=== PATIENT | female | born 1970 | race Caucasian/White ===

== ENCOUNTER 2018-07-31 16:35 | Inpatient (IN) | payer OTHER ==
[~2018-07-31] VITALS: Ht 165.1 cm; Wt 101.6 kg
[~2018-07-31 16:35] MED LIST: ACET325 PO; ALPR1 PO; AMOCLA875 PO; BUPR1 PO; CEFD300 PO; CEPH500 PO; CIPR500 PO; CLIN300 PO; CLON.2 PO; CODGUAEL PO; CONEST1.25 PO; DICY20 PO; DOXY100 PO; ESTR2 PO; FLUC200 PO; FLUT.05NI; GABA300 PO; GABA600 PO; GUAN1 PO; HYDACE10B; HYDACE5 PO; HYDACE7.5 PO; HYDGUAL120 PO; HYDPAM50 PO; IBUP200 PO; IBUP800 PO; KETO10 PO; LAMO100; LEVSOD50 PO; LOPE2C PO; LORA1 PO; METH10 PO; NAPR550 PO; ONDA4ODT MM; OXYACE5T PO; OXYC5; OXYC5 PO; PARO20 PO; PENVK500 PO; PHENA200 PO; PRED20 PO; PROCODE120 PO; PROM25 PO; RXHYDACE PO; RXNAPNA550 PO; RXOXYACE PO; SILSUL1TC TOP; SULTRIDS PO; TOPI100; TRAM50 PO; TRAZ100 PO; VARE1 PO; [UNRECOGNIZED DRUG - REMARK] PO
[2018-07-31 17:31] LABS: Source, Urine Voided
[2018-07-31 17:33] LABS: BASOPHILS ABSOLUTE AUTO 0.01 K/mm3 (0.00-0.23); BASOPHILS PERCENT AUTO 0 % (0-2); EOSINOPHILS ABSOLUTE AUTO 0.06 K/mm3 (0.00-0.68); EOSINOPHILS PERCENT AUTO 1 % (0-6); Hematocrit 32.5 % (33.0-51.0); Hemoglobin 11.3 g/dL (11.5-16.0); IMMATURE GRAN ABSOLUTE AUTO 0.07 K/mm3 (0.00-0.10); IMMATURE GRAN PERCENT AUTO 1 % (0-1); LYMPHOCYTES PERCENT AUTO 5 % (21-46); MONOCYTES ABSOLUTE AUTO 0.43 K/mm3 (0.16-1.47); MONOCYTES PERCENT AUTO 4 % (4-13); Mean Corpuscular HGB 30.4 pg (26.0-34.0); Mean Corpuscular HGB Conc 34.8 g/dL (31.5-36.5); Mean Corpuscular Volume 87 fL (80-100); Mean Platelet Volume 11.3 fL (9.1-12.4); NEUTROPHILS ABSOLUTE AUTO 9.19 K/mm3 (1.96-9.15); NEUTROPHILS PERCENT AUTO 90 % (41-73); Platelet Count 143 K/mm3 (150-400); RDW Coefficient Variation 12.5 % (11.7-14.2); Red Blood Cell Count 3.72 M/mm3 (3.80-5.20); White Blood Cell Count 10.26 K/mm3 (4.00-11.30)
[2018-07-31 17:37] LABS: Appearance, Urine Clear (Clear); Bilirubin, Urine Neg (Neg); Blood, Urine 2+ (Neg); Color, Urine Yellow (P-Yellow); Glucose Qualitative, Urine Neg (Neg); Ketones, Urine Neg (Neg); Leukocyte Esterase, Urine Neg (Neg); Nitrite, Urine Neg (Neg); Protein, Urine 2+ (Neg); Urobilinogen, Urine NORM (Normal)
[2018-07-31 17:47] LABS: Amorphous Light (0-Heavy); Bacteria Few /hpf; Granular Casts 0-2 /lpf (0); Squamous Epithelial Cells Few /hpf (Few)
[2018-07-31] MEDS ORDERED: Bactrim Ds Tab1 EACH PO ×2 (17:54)
[2018-07-31] MEDS ORDERED: BACI500TO TOP ×2 (17:55)
[2018-07-31 17:56] LABS: Alanine Aminotransfer (ALT/SGP 20 U/L (12-78); Albumin, Blood 2.5 g/dL (3.4-5.0); Albumin/Globulin Ratio 0.6 (0.8-1.8); Alk Phos 79 U/L (50-136); Anion Gap 6 mmol/L (6-16); Aspartate Aminotrans (AST/SGOT 22 U/L (12-37); Bilirubin, Total 0.5 mg/dL (0.1-1.0); Blood Urea Nitrogen 7 mg/dL (8-24); Bun/Creatinine Ratio 10.8 (12.0-20.0); CO2, Blood 28 mmol/L (21-32); Calcium, Blood 8.7 mg/dL (8.5-10.1); Chloride, Blood 96 mmol/L (98-108); Creatinine, Blood 0.65 mg/dL (0.40-1.00); Globulin, Blood 3.9 g/dL (2.2-4.0); Glomerular Filtration Rate >60 (60-); Glucose, Blood 100 mg/dL (70-99); Potassium, Blood 2.9 mmol/L (3.5-5.5); Sodium, Blood 130 mmol/L (136-145); Total Protein, Blood 6.4 g/dL (6.4-8.2)
[2018-07-31] MEDS ORDERED: LIDO5TO TOP ×2 (17:56)
[2018-07-31] MEDS ORDERED: DOXY100T53 PO ×2 (17:56)
[2018-07-31 17:57] LABS: Beta HCG, Quantitative, Serum 1 mIU/mL (0-3)
[2018-07-31] MEDS ORDERED: ZUBSOLV 8.6-2.1 EACH SL ×2 (17:57)
[2018-07-31] MEDS ORDERED: ZUBSOLV 1.4-0.1 EACH SL ×2 (17:57)
[2018-07-31] MEDS ORDERED: ESTR2 PO ×2 (17:58)
[2018-07-31] MEDS ORDERED: MELA3 PO ×2 (17:58)
[2018-08-01 05:02] LABS: BASOPHILS ABSOLUTE AUTO 0.01 K/mm3 (0.00-0.23); BASOPHILS PERCENT AUTO 0 % (0-2); EOSINOPHILS ABSOLUTE AUTO 0.04 K/mm3 (0.00-0.68); EOSINOPHILS PERCENT AUTO 1 % (0-6); Hematocrit 29.6 % (33.0-51.0); Hemoglobin 10.3 g/dL (11.5-16.0); IMMATURE GRAN ABSOLUTE AUTO 0.05 K/mm3 (0.00-0.10); IMMATURE GRAN PERCENT AUTO 1 % (0-1); LYMPHOCYTES PERCENT AUTO 10 % (21-46); MONOCYTES ABSOLUTE AUTO 0.54 K/mm3 (0.16-1.47); MONOCYTES PERCENT AUTO 7 % (4-13); Mean Corpuscular HGB 29.9 pg (26.0-34.0); Mean Corpuscular HGB Conc 34.8 g/dL (31.5-36.5); Mean Corpuscular Volume 86 fL (80-100); NEUTROPHILS ABSOLUTE AUTO 6.01 K/mm3 (1.96-9.15); NEUTROPHILS PERCENT AUTO 82 % (41-73); RDW Coefficient Variation 12.8 % (11.7-14.2); RDW Standard Deviation 40.2 fL (35.1-46.3); Red Blood Cell Count 3.44 M/mm3 (3.80-5.20); White Blood Cell Count 7.35 K/mm3 (4.00-11.30)
[2018-08-01 05:05] LABS: Mean Platelet Volume 12.1 fL (9.1-12.4); Platelet Count 111 K/mm3 (150-400)
--- NOTE | 2018-08-01 05:17 | NUR ---
SHIFT SUMMARY PT WAS IN PAIN UPON ARRIVAL TO FLOOR. PT HAS BEEN MEDICATED PER EMAR. PT ALSO RECIEVED A OT DOSE OF TRAMADOL ORDERED BY DR KEENE. IT WORKED OK FOR PT. PT MAY BENEFIT FROM CONTINUED USE OF TRAMADOL FOR DISCOMFORT. COLD THERAPY STATRTED ON R LEG WITH GOOD EFFECT. PT WAS ABLE TO SLEEP EVENTUALLY. PT CURRENTLY SLEEPING AND BREATHING EASY. CALL LIGHT IN REACH.
[2018-08-01 05:22] LABS: Anion Gap 7 mmol/L (6-16); Blood Urea Nitrogen 6 mg/dL (8-24); Bun/Creatinine Ratio 9.5 (12.0-20.0); CO2, Blood 27 mmol/L (21-32); Calcium, Blood 7.8 mg/dL (8.5-10.1); Chloride, Blood 102 mmol/L (98-108); Creatinine, Blood 0.63 mg/dL (0.40-1.00); Glomerular Filtration Rate >60 (60-); Glucose, Blood 103 mg/dL (70-99); Potassium, Blood 3.2 mmol/L (3.5-5.5); Sodium, Blood 136 mmol/L (136-145)
--- NOTE | 2018-08-01 17:13 | NUR ---
SHIFT SUMMARY PT AXO, COOPERATIVE WITH CARE. TEMPERATURE RANGING FROM 101.9 TO 98.9. TYLENOL GIVEN PER EMAR. PT COMPLAINING OF PAIN 7-10 THOUGHOUT THE DAY. PT RESTING COMFORTABLY THOUGH RATING PAIN AT A 7 AT THIS TIME. PT UP WITH SBA TO BATHROOM. AMBULATION ENCOURAGED THROUGHOUT THE DAY. PT COMPLAINED OF SWELLING IN HANDS BILATERALLY. DR TOLEDO NOTIFED WHO ORDERED NURSE TO ENCOURAGE AMBULATION AND REDUCED THE RATE OF INFUSION. IV'S PATENT. BOARDER OF REDDENED AREA MARKED THIS MORNING. COLOR OF RLE IS STILL RED BUT NOT BRIGHT IT WAS AT START OF SHIFT. NO OTHER CHANGES THIS SHIFT. BED IN LOW POSITION, CALL LIGHT WITHIN REACH.
[2018-08-02 05:38] LABS: Albumin, Blood 1.9 g/dL (3.4-5.0); Anion Gap 5 mmol/L (6-16); Blood Urea Nitrogen 5 mg/dL (8-24); Bun/Creatinine Ratio 7.3 (12.0-20.0); CO2, Blood 29 mmol/L (21-32); Chloride, Blood 102 mmol/L (98-108); Creatinine, Blood 0.69 mg/dL (0.40-1.00); Glomerular Filtration Rate >60 (60-); Glucose, Blood 90 mg/dL (70-99); Phosphorus, Blood 2.9 mg/dL (2.5-4.9); Potassium, Blood 3.4 mmol/L (3.5-5.5); Sodium, Blood 136 mmol/L (136-145)
[2018-08-02 10:53] LABS: Vancomycin, Trough 13.3 ug/mL (5.0-10.0)
--- NOTE | 2018-08-02 18:05 | NUR ---
SHIFT SUMMARY PT AXO, PLEASANT AND COOPERATIVE WITH CARE THOUGH ANXIOUS AT TIMES. TEMPERATURE 99.5-99.8 THIS SHIFT MEDICATED PER EMAR. PT MEDICATED FOR CONSTIPAITON WELL. AMBULATION ENCOURAGED, PT MOTIVATED TO AMBULATE WELL, WALKING AROUND THE UNIT X3 THIS SHIFT. POWERGLIDE INSERTED THIS SHIFT BY MYA KUMAR RN. RED AREA ON LEG MARKED YESTERDAY. POSTERIOR ASPECT OF LEG AREA MARKED ABOVE KNEE JOINT THIS SHIFT. PT MEDICATED FOR PAIN PER EMAR. PT DENIES SOB AND NV. PT IN SHOWER AT THIS TIME. BED IN LOW POSITION, CALL LIGHT WITHIN REACH.
[2018-08-03 05:57] LABS: BASOPHILS ABSOLUTE AUTO 0.03 K/mm3 (0.00-0.23); BASOPHILS PERCENT AUTO 0 % (0-2); EOSINOPHILS ABSOLUTE AUTO 0.14 K/mm3 (0.00-0.68); EOSINOPHILS PERCENT AUTO 2 % (0-6); Hematocrit 29.7 % (33.0-51.0); IMMATURE GRAN ABSOLUTE AUTO 0.06 K/mm3 (0.00-0.10); IMMATURE GRAN PERCENT AUTO 1 % (0-1); LYMPHOCYTES ABSOLUTE AUTO 1.52 K/mm3 (0.84-5.20); LYMPHOCYTES PERCENT AUTO 22 % (21-46); MONOCYTES ABSOLUTE AUTO 0.92 K/mm3 (0.16-1.47); MONOCYTES PERCENT AUTO 13 % (4-13); Mean Corpuscular HGB 30.1 pg (26.0-34.0); Mean Corpuscular HGB Conc 33.7 g/dL (31.5-36.5); Mean Platelet Volume 11.6 fL (9.1-12.4); NEUTROPHILS ABSOLUTE AUTO 4.25 K/mm3 (1.96-9.15); NEUTROPHILS PERCENT AUTO 61 % (41-73); Platelet Count 195 K/mm3 (150-400); RDW Coefficient Variation 13.5 % (11.7-14.2); RDW Standard Deviation 44.4 fL (35.1-46.3); Red Blood Cell Count 3.32 M/mm3 (3.80-5.20); White Blood Cell Count 6.92 K/mm3 (4.00-11.30)
[2018-08-03 06:00] LABS: Mean Corpuscular Volume 90 fL (80-100)
--- NOTE | 2018-08-03 06:22 | NUR ---
SHIFT SUMMARY A/O, ABLE TO MAKE NEEDS KNOWN. COOPERATIVE WITH CARE. CALLS AND ANSWERS QUESTIONS APPROPRIATLEY. UP INDEPENDENTLY IN ROOM AND HALLWAYS. C/O PAIN/DISCOMFORT TO RLE PERIODICALLY; MEDICATED PER EMAR. AFFECTED EXTREMITY ELEVATED ON PILLOWS; SWELLING/ERYTHEMA APPEARS TO HAVE REDUCED. PG TO KASSI PULLED OUT AND DRESSING REPLACED BY DEVAN, PUBLIC SAFETY DIRECTOR. PG NOW FLUSHING APPROPRIATELY WITHOUT COMPLICATIONS; ALSO DRAWS BACK FOR LABS. APPEARED TO REST OFF AND ON THROUGHOUT SHIFT. FEBRILE THIS AM; WILL RE-CHECK. NO OTHER ACUTE CHANGES. BED IN LOWEST POSITION. CALL LIGHT AND BELONGINGS WITHIN REACH. WCTM. REPORT TO ONCOMING RN.
[2018-08-03 06:27] LABS: Albumin, Blood 2.1 g/dL (3.4-5.0); Anion Gap 4 mmol/L (6-16); Blood Urea Nitrogen 11 mg/dL (8-24); Bun/Creatinine Ratio 14.4 (12.0-20.0); CO2, Blood 32 mmol/L (21-32); Calcium, Blood 8.5 mg/dL (8.5-10.1); Chloride, Blood 106 mmol/L (98-108); Creatinine, Blood 0.76 mg/dL (0.40-1.00); Glomerular Filtration Rate >60 (60-); Glucose, Blood 94 mg/dL (70-99); Phosphorus, Blood 3.8 mg/dL (2.5-4.9); Sodium, Blood 142 mmol/L (136-145)
--- NOTE | 2018-08-03 18:37 | NUR ---
SHIFT SUMMARY MODESTA COMPLAINED OF PAIN IN HER RLE, RELIEVED BY IV BENADRYL, IV TORADOL, AND TYLENOL. R LEG RED AND SWOLLEN, THOUGH REDNESS IS SHRINKING PER BLACK LINE FROM PRIOR MARKING. L POWERGLIDE C/D/I. HAD BM. INDEPENDENT IN ROOM TO BR. CALL LIGHT IN REACH. WCTM
--- NOTE | 2018-08-04 07:21 | NUR ---
SHIFT SUMMARY PT IS A 47 Y/O FEMALE, ADMITTED FOR RLE CELLULITIS. SHE IS A&O X 4, AND INDEPENDENT IN THE ROOM. PT REPORTED A HEADACHE AND PAIN IN HER RLE, AND WAS MEDICATED WITH TORADOL AND TYLENOL. NO COMPLAINTS OF NAUSEA OR SOB. VITALS REMAINED STABLE. NO OTHER ACUTE CHANGES IN PT CONDITION NOTED. WILL CONTINUE TO MONITOR AND TREAT PER EMAR.
[2018-08-04 11:08] LABS: Vancomycin, Trough 16.4 ug/mL (5.0-10.0)
--- NOTE | 2018-08-04 16:46 | NUR ---
SHIFT SUMMARY NO CHANGES IN ASSESSMENT AT THIS TIME. VSS. PT ANXOUS ABOUT DC PLAN. DC PLANNING INFORMED THAT PT WOULD PREFER HOME INFUSIONS IF NEEDED/POSSIBLE UPON DC. PT A&O AND IND IN ROOM. PT C/O HEADACHE THIS SHIFT. DR. VILLANUEVA INFORMED & ORDERED FLEXERIL. PT STATES SHE THINKS IT IS HELPING RELIEVE HER NECK TENSION & HELPING WITH HEADACHE. WILL CONTINUE TO MONITOR UNTIL TURNOVER IS COMPLETE.
--- NOTE | 2018-08-05 07:29 | NUR ---
SHIFT SUMMARY PT A/O. C/O PAIN IN NECK/BACK AND MEDICATED PER EMAR X2. SHE STATES SHE IS URINATING A LOT SHE NOTICED. INDEPENDENT TO BA. SHE WAS ABLE TO SLEEP ON AND OFF T/O NOC. CALL LIGHT IN REACH.
[2018-08-05] MEDS ORDERED: JUVEN PACKET1 EACH PO ×2 (15:34)
[2018-08-05] MEDS ORDERED: CLOT10 SS ×2 (15:36)
[2018-08-05] MEDS ORDERED: CYCL10 PO ×2 (15:37)
[2018-08-05] MEDS ORDERED: GABA300 PO ×2 (15:42)
[2018-08-05] MEDS ORDERED: VANCO 1.751.75 GM/25 ×2 (15:50)
--- NOTE | 2018-08-05 16:40 | NUR ---
PT DISCHARGED. PT DISCHARGED IN STABLE CONDITION WITH VSS. PT EDUCATED ON DC INSTRUCTIONS, FER APPOINTMENTS, & NEW MEDICATIONS. NO CHANGES IN ASSESSMENT PRIOR TO DC. PT REFUSED WHEELCHAIR OUT OF BUILDING. PT DRIVEN HOME BY . PG INTACT & LEFT FOR FER INFUSIONS.
== END 2018-08-05 16:29 | disposition home or self-care (01) | DRG 603 ==
LOC: ER 16:35 → MEDS 19:01
PROVIDERS: Emergency Medicine; ADMIT Internal Medicine
DX: L03.115 Cellulitis of right lower limb (principal); F11.20 Opioid dependence, uncomplicated; E87.1 Hypo-osmolality and hyponatremia; E46 Unspecified protein-calorie malnutrition; I10 Essential (primary) hypertension; F41.9 Anxiety disorder, unspecified; F17.210 Nicotine dependence, cigarettes, uncomplicated; E87.6 Hypokalemia; E86.0 Dehydration; E03.9 Hypothyroidism, unspecified; I87.2 Venous insufficiency (chronic) (peripheral); Z85.820 Personal history of malignant melanoma of skin; Z88.8 Allergy status to other drugs, medicaments and biological substances; Z79.899 Other long term (current) drug therapy
CPT/HCPCS: 36415; 80048; 80053; 80069; 80202; 81001; 83605; 83735; 84702; 85025; 87040; 93971; 96361; 96365; 96375; 96376; 99285-25; A9270; C9113; J0690; J1200; J1650; J1885; J3370; J3480; J7050; J7120; Q0163

== ENCOUNTER 2018-08-06 00:12 | Day surgery (SDC) | payer OTHER ==
[~2018-08-06 00:12] MED LIST changes: +BACI500TO TOP; +Bactrim Ds Tab1 EACH PO; +CLOT10 SS; +CYCL10 PO; +DOXY100T53 PO; +JUVEN PACKET1 EACH PO; +LIDO5TO TOP; +MELA3 PO; +VANCO 1.751.75 GM/25; +ZUBSOLV 1.4-0.1 EACH SL; +ZUBSOLV 8.6-2.1 EACH SL
[2018-08-06 09:04] LABS: Creatinine, Blood 0.66 mg/dL (0.40-1.00); Vancomycin, Trough 11.7 ug/mL (5.0-10.0)
== END 2018-08-06 16:51 | disposition home or self-care (01) ==
LOC: ATC 00:12
PROVIDERS: Internal Medicine
DX: L03.115 Cellulitis of right lower limb (principal); E03.9 Hypothyroidism, unspecified; E87.6 Hypokalemia; E86.0 Dehydration; E87.1 Hypo-osmolality and hyponatremia; F17.210 Nicotine dependence, cigarettes, uncomplicated; Z85.820 Personal history of malignant melanoma of skin; Z79.899 Other long term (current) drug therapy
CPT/HCPCS: 80202; 82565; 96365; 96366; J3370; J7050

== ENCOUNTER 2018-08-07 07:54 | Day surgery (SDC) | payer OTHER | END 2018-08-07 18:08 | disposition home or self-care (01) | LOC: ATC 07:54 | DX: L03.115 Cellulitis of right lower limb (principal); E03.9 Hypothyroidism, unspecified; E87.6 Hypokalemia; E86.0 Dehydration; E87.1 Hypo-osmolality and hyponatremia; F17.210 Nicotine dependence, cigarettes, uncomplicated; Z79.899 Other long term (current) drug therapy; Z85.820 Personal history of malignant melanoma of skin | CPT/HCPCS: 96365; 96366; J3370; J7050 ==

== ENCOUNTER 2018-08-08 08:05 | Day surgery (SDC) | payer OTHER | END 2018-08-08 18:20 | disposition home or self-care (01) | LOC: ATC 08:05 | DX: L03.115 Cellulitis of right lower limb (principal); E03.9 Hypothyroidism, unspecified; E87.6 Hypokalemia; E86.0 Dehydration; E87.1 Hypo-osmolality and hyponatremia; F17.210 Nicotine dependence, cigarettes, uncomplicated; Z79.899 Other long term (current) drug therapy; Z85.820 Personal history of malignant melanoma of skin | CPT/HCPCS: 96365; 96366; J3370; J7050 ==

== ENCOUNTER 2018-08-09 00:11 | Day surgery (SDC) | payer OTHER | END 2018-08-09 18:19 | disposition home or self-care (01) | LOC: ATC 00:11 | DX: L03.115 Cellulitis of right lower limb (principal); E03.9 Hypothyroidism, unspecified; F17.210 Nicotine dependence, cigarettes, uncomplicated; E87.6 Hypokalemia; E87.1 Hypo-osmolality and hyponatremia; Z85.820 Personal history of malignant melanoma of skin; Z79.899 Other long term (current) drug therapy | CPT/HCPCS: 96365; 96366; J3370; J7050 ==

== ENCOUNTER 2018-08-10 03:00 | Day surgery (SDC) | payer OTHER ==
[2018-08-10 10:58] LABS: Anion Gap 3 mmol/L (6-16); Blood Urea Nitrogen 12 mg/dL (8-24); CO2, Blood 31 mmol/L (21-32); Calcium, Blood 9.2 mg/dL (8.5-10.1); Chloride, Blood 105 mmol/L (98-108); Creatinine, Blood 0.67 mg/dL (0.40-1.00); Glomerular Filtration Rate >60 (60-); Glucose, Blood 116 mg/dL (70-99); Potassium, Blood 4.3 mmol/L (3.5-5.5); Sodium, Blood 139 mmol/L (136-145)
== END 2018-08-10 18:20 | disposition home or self-care (01) ==
LOC: ATC 03:00
PROVIDERS: Internal Medicine
DX: L03.115 Cellulitis of right lower limb (principal); E03.9 Hypothyroidism, unspecified; F17.210 Nicotine dependence, cigarettes, uncomplicated; Z79.899 Other long term (current) drug therapy
CPT/HCPCS: 80048; 96365; 96366; J3370; J7050

== ENCOUNTER 2020-05-03 20:48 | Emergency (ER) | payer OTHER ==
[~2020-05-03] VITALS: Ht 162.6 cm; Wt 102.1 kg
[2020-05-03 23:28] LABS: BASOPHILS ABSOLUTE AUTO 0.05 K/mm3 (0.00-0.23); BASOPHILS PERCENT AUTO 0 % (0-2); EOSINOPHILS PERCENT AUTO 0 % (0-6); Hematocrit 36.3 % (33.0-51.0); Hemoglobin 12.7 g/dL (11.5-16.0); IMMATURE GRAN ABSOLUTE AUTO 0.17 K/mm3 (0.00-0.10); IMMATURE GRAN PERCENT AUTO 1 % (0-1); LYMPHOCYTES ABSOLUTE AUTO 0.81 K/mm3 (0.84-5.20); LYMPHOCYTES PERCENT AUTO 5 % (21-46); MONOCYTES ABSOLUTE AUTO 0.34 K/mm3 (0.16-1.47); MONOCYTES PERCENT AUTO 2 % (4-13); Mean Corpuscular HGB 30.5 pg (26.0-34.0); Mean Corpuscular Volume 87 fL (80-100); Mean Platelet Volume 10.6 fL (9.1-12.4); NEUTROPHILS ABSOLUTE AUTO 15.81 K/mm3 (1.96-9.15); NEUTROPHILS PERCENT AUTO 92 % (41-73); Platelet Count 219 K/mm3 (150-400); RDW Coefficient Variation 12.2 % (11.7-14.2); RDW Standard Deviation 39.3 fL (35.1-46.3); Red Blood Cell Count 4.16 M/mm3 (3.80-5.20); White Blood Cell Count 17.18 K/mm3 (4.00-11.30)
[2020-05-03 23:44] LABS: Alanine Aminotransfer (ALT/SGP 31 U/L (12-78); Albumin, Blood 2.9 g/dL (3.4-5.0); Albumin/Globulin Ratio 0.7 (0.8-1.8); Alk Phos 69 U/L (50-136); Anion Gap 7 mmol/L (6-16); Aspartate Aminotrans (AST/SGOT 30 U/L (12-37); Bilirubin, Total 0.5 mg/dL (0.1-1.0); Blood Urea Nitrogen 12 mg/dL (8-24); Bun/Creatinine Ratio 15.6 (12.0-20.0); CO2, Blood 29 mmol/L (21-32); Chloride, Blood 97 mmol/L (98-108); Creatinine, Blood 0.77 mg/dL (0.40-1.00); Globulin, Blood 3.9 g/dL (2.2-4.0); Glomerular Filtration Rate >60 (60-); Glucose, Blood 106 mg/dL (70-99); International Normalized Ratio 1.02; Potassium, Blood 3.5 mmol/L (3.5-5.5); Prothrombin Time Results 10.9 Sec (9.7-11.5); Sodium, Blood 133 mmol/L (136-145); Total Protein, Blood 6.8 g/dL (6.4-8.2)
[2020-05-04 00:01] LABS: Source, Urine Catheter
[2020-05-04 00:05] LABS: Bilirubin, Urine Neg (Neg); Blood, Urine 1+ (Neg); Glucose Qualitative, Urine Neg (Neg); Ketones, Urine Neg (Neg); Leukocyte Esterase, Urine 1+ (Neg); Nitrite, Urine Neg (Neg); Protein, Urine Neg (Neg); Urobilinogen, Urine NORM (Normal)
[2020-05-04 00:20] LABS: Appearance, Urine Clear (Clear); Color, Urine Yellow (P-Yellow)
[2020-05-04 00:21] LABS: Bacteria Not Seen /hpf; Red Blood Cells, Urine 0-2 /hpf (0-2); Squamous Epithelial Cells Few /hpf (Few); White Blood Cells, Urine Rare /hpf (0-5)
[2020-05-04] MEDS ORDERED: Cleocin HCl300 MG PO (01:11)
== END 2020-05-04 02:10 | disposition home or self-care (01) ==
LOC: ER 20:48
PROVIDERS: Physician Assistant
DX: L03.115 Cellulitis of right lower limb (principal); F17.210 Nicotine dependence, cigarettes, uncomplicated; Z88.8 Allergy status to other drugs, medicaments and biological substances; Z79.899 Other long term (current) drug therapy
CPT/HCPCS: 36415; 80053; 81001; 83605; 85025; 85610; 85730; 87040; 87086; 93005; 93010; 96365; 96375; 99283-25; A9270; J2405

== ENCOUNTER → 2022-06-28 | Outpatient (CLI) | payer OTHER ==
[~2022-06-28] MED LIST changes: +Cleocin HCl300 MG PO
== END ==
LOC: LAB SHORT 13:35 → LAB 13:35
DX: N39.0 Urinary tract infection, site not specified (principal)
CPT/HCPCS: 87086